=== PATIENT | male | born 1985 | race Caucasian/White ===

== ENCOUNTER 2017-09-17 14:58 | Emergency (ER) | payer SELFPAY ==
--- NOTE | 2017-09-17 15:02 | ED Physician Documentation ---
General Adult - HISTORIAN Historian: patient - HPI Stated Complaint: right arm pain Chief Complaint: Upper Extremity Problem Onset: other (he reports since surgery as a child he has chronic pain although this am he states the pain is more sharp and "not tolerable" ) Timing: still present, worse Severity: moderate Further Comments: yes (History of "bone cancer" and had a "major surgery in right arm" states no injury "that I am aware of" and he has pain that is 10 out of 10 and he has tried his home meds of tramadol and this is not touching the pain.) Last known Well Code/Unknown Code: Unknown - ROS CONST: no problems EYES/ENT: none - PAST HX Past History: other (bone cancer, depression, reflux ) Surgeries/Procedures: other (reconstruction of right elbow/arm ) Immunizations: UTD Allergies/Adverse Reactions: Allergies Allergy/AdvReac Type Severity Reaction Status Date / Time vancomycin Allergy Verified 09/17/17 15:38 Home Medications: Ambulatory Orders Medication Instructions Recorded Atorvastatin Calcium [Atorvastatin 40 mg PO HS 09/17/17 Calcium] Bupropion HCl [Wellbutrin Sr] 150 mg PO DAILY 09/17/17 Cyclobenzaprine HCl [Flexeril] 10 mg PO HS PRN 09/17/17 Pantoprazole Sodium [Protonix] 40 mg PO DAILY 09/17/17 Tramadol HCl [Ultram] 50 mg PO Q4 PRN 09/17/17 clonazePAM [Klonopin] 0.5 mg PO BID 09/17/17 - SOCIAL HX Smoking History: cigarettes Alcohol Use: none Drug Use: none - FAMILY HX Family History: No - REVIEWED ASSESSMENTS Nursing Assessment Reviewed: Yes Vitals Reviewed: Yes ED Results Lab/Radiology - Radiology Radiology Impressions: Examination: Plain film right elbow History: RIGHT ELBOW PAIN, NO KNOWN INJURY; RADIUS REMOVED DUE TO BONE CANCER 21 YEARS AGO (Hx) / PAIN (DICOM Hx) / PAIN (Pt comments) Comparison exams: None provided Findings: 3 views of the right elbow demonstrates 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 Articular degenerative changes with ossific spurring. No displaced fracture line. Angulation of the mid humerus - not fully evaluated. Impression: Articular degenerative changes. No displaced fracture line. 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 Angulation of the mid humerus - not fully evaluated. Electronically signed on Sep 17, 2017 3:48:54 PM TELEVISION TECHNICIAN by: William Huynh General Adult Physical Exam - PHYSICAL EXAM GENERAL APPEARANCE: no distress EENT: eye inspection normal NECK: normal inspection RESPIRATORY: no resp distress, chest non-tender, breath sounds normal CVS: reg rate & rhythm, heart sounds normal, equal pulses, no murmur ABDOMEN: soft, normal bowel sounds RECTAL: normal exam, normal rectal tone SKIN: warm/dry, normal color EXTREMITIES: other (right arm with surgical scar and obvious deformity (nothing is new per pt) pulses + sensation + and rom "normal for me" ) NEURO: oriented X3, CN's nml as tested, motor nml Discharge Clincal Impression: Pain Referrals: Almita Mack PRN [Primary Care Provider] - 2 Days Condition: Stable Disposition: 01 HOME, SELF-CARE Decision to Admit: NO Date of Decison to Admit: 09/17/17 Decision Time: 16:29
[2017-09-17] MEDS ORDERED: KETOROLAC TROMETHAMINE 60 MG/2 ML VIAL ONE (15:20)
[2017-09-17] MEDS ORDERED: KETOROLAC TROMETHAMINE 60 MG/2 ML VIAL IM ONE (15:21)
[2017-09-17 15:37] VITALS: BP 138/91
--- NOTE | 2017-09-17 18:58 | Diagnostic Imaging Report ---
PADMAJA DONNELLY [facility] [address] [facility] [address] 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 Articular degenerative changes with ossific spurring. No displaced fracture line. Angulation of the mid humerus - not fully evaluated. Impression: Articular degenerative changes. No displaced fracture line. 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 Angulation of the mid humerus - not fully evaluated. Electronically signed on Sep 17, 2017 3:48:54 PM HUMAN RESOURCE ADVISER by: William Huynh Clarification: 2nd line of the impression should read - Angulation of the mid ulna - not fully evaluated. Additional imaging provided for review Cortical fullness involving the mid ulna suggesting prior fracture/lesion. Consider obtaining dedicated forearm imaging and correlation with any prior imaging if available. Addendum electronically signed by William Huynh on September 17, 2017 4:15:55 PM HUMAN RESOURCE ADVISER [facility]
== END 2017-09-17 16:40 | disposition home or self-care (01) ==
LOC: ED 14:58
DX: M79.601 Pain in right arm (principal); Z85.830 Personal history of malignant neoplasm of bone
CPT/HCPCS: 73080; 96372; 99282